=== PATIENT | female | born 1965 | race African-American/Black ===

== ENCOUNTER 2021-09-03 14:44 | Inpatient (IN) | payer BC, SELFPAY ==
[~2021-09-03 14:44] MED LIST: Iopamidol 370 76% 100 ML VIAL ONE
[2021-09-03 16:10] LABS: Bilirubin Neg (Negative); Blood, Urine Negative (Negative); Glucose, Urine (Dipstick) Normal (Negative); Ketone, Urine Negative (Negative); Leukocyte 100 (Negative); Nitrite Negative (Negative); Protein, Urine (Dipstick) Negative (Neg-Trace); Urobilinogen Normal mg/dL (Less than 2)
[2021-09-03 16:17] LABS: Clarity Hazy (Clear)
[2021-09-03 16:31] LABS: RBC/HPF None Seen HPF (0-3); WBC/HPF 0-3 HPF (0-3)
[2021-09-03 16:32] LABS: Bacteria/HPF 2+ HPF (None Seen)
[2021-09-03 16:43] LABS: #Eosinphils 0.1 10x3/uL (0.0-0.5); #Monocytes 0.5 10x3/uL (0.0-1.1); #Neutrophils 3.2 10x3/uL (1.5-8.4); %Basophils 0.5 % (0.0-2.0); %Eosinophils 0.9 % (0.0-6.0); %Lymphocytes 40.7 % (18.0-47.0); %Monocytes 7.4 % (0.0-10.0); %Neutrophils 50.2 % (40.0-75.0); Hemoglobin 13.7 g/dL (12.0-15.5); Mean Corpuscular HGB CONC 32.9 g/dL (32.0-36.0); Mean Corpuscular Hemoglobin 28.3 pg (27.0-33.0); Mean Corpuscular Volume 86.2 fl (81.6-98.3); Mean Platelet Volume 10.5 fl (7.4-10.4); Platelet Count 213 10x3/uL (150-450); RBC Distribution Width 14.8 % (11.5-14.5); Red Blood Cell (RBC) Count 4.84 10x6/uL (3.90-5.03); White Blood Cell (WBC) Count 6.4 10x3/uL (3.5-10.5)
[2021-09-03 16:58] LABS: ALT (SGPT) 15 U/L (8-55); AST (SGOT) 17 U/L (5-34); Albumin 3.9 g/dL (3.5-5.0); Alkaline Phosphatase 105 U/L (40-110); Anion Gap 12 mmol/L (10-20); BUN (Urea Nitrogen) 14 mg/dL (9.8-20.1); Bilirubin, Total 0.2 mg/dL (0.2-1.2); Calc. Creatinine Clearance 0 mL/min (70-130); Calcium 8.8 mg/dL (7.8-10.44); Carbon Dioxide 25 mmol/L (22-29); Chloride 105 mmol/L (98-107); Globulin 2.4 g/dL (2.4-3.5); Glucose 91 mg/dL (70-105); Potassium 4.2 mmol/L (3.5-5.1); Protein, Total 6.3 g/dL (6.0-8.3); Sodium 138 mmol/L (136-145)
[2021-09-03] MEDS ORDERED: Aspirin 300 MG Suppository ONE (18:12)
[2021-09-03] MEDS ORDERED: Morphine 2 MG/ML VIAL ONE (19:01)
[2021-09-03] MEDS ORDERED: hydrALAZINE 20 MG/ML VIAL SLOW IVP PRN (20:32)
[2021-09-03] MEDS ORDERED: Ondansetron PF 4 MG/2 ML Vial IVP PRN (20:35)
[2021-09-03] MEDS ORDERED: Zolpidem Tartrate 5 MG TAB PO PRN (20:35)
[2021-09-03] MEDS ORDERED: Bisacodyl 5 MG TAB PO PRN (20:35)
[2021-09-03] MEDS ORDERED: Morphine 2 MG/ML VIAL SLOW IVP PRN (20:40)
[2021-09-03] MEDS ORDERED: Clopidogrel Bisulfate 300 MG TAB PO SCH (21:00)
[2021-09-03] MEDS ORDERED: Famotidine 20 MG TAB PO SCH (21:00)
[2021-09-03 22:08] VITALS: BMI 32.6
[2021-09-03] MEDS: Sodium Chloride 0.9% 1,000 ML IV SCH (22:44)
[2021-09-03] MEDS: Atorvastatin Calcium 40 MG TAB PO SCH (22:45)
[2021-09-03] MEDS: cefTRIAXone\\ROCEPHIN 1 GM in Sodium Chloride 0.9% 100 ML IVPB SCH (22:47)
[2021-09-03] MEDS: Nicotine 14 MG PATCH TD SCH (22:56)
[2021-09-03 23:42] LABS: Amphetamine Not Detected (NotDetected); Barbiturates Screen Not Detected (NotDetected); Benzodiazepine Screen Not Detected (NotDetected); Cocaine Metabolite Screen Not Detected (NotDetected); Methadone Not Detected (NotDetected); Methamphetamine Not Detected (NotDetected); Opiate Screen Detected (NotDetected); Oxycodone Screen Not Detected (NotDetected); Phencyclidine (PCP) Not Detected (NotDetected); THC/Cannabinoid Screen Detected (NotDetected); Tricyclic Screen Not Detected (NotDetected)
[2021-09-04] MEDS: HYDROcodone/Acetaminophen 7.5/325 mg Tablet PO PRN ×5 (01:02→20:12)
[2021-09-04 04:59] LABS: #Eosinphils 0.1 10x3/uL (0.0-0.5); #Monocytes 0.5 10x3/uL (0.0-1.1); #Neutrophils 2.3 10x3/uL (1.5-8.4); %Basophils 0.5 % (0.0-2.0); %Eosinophils 1.8 % (0.0-6.0); %Lymphocytes 47.5 % (18.0-47.0); %Monocytes 9.1 % (0.0-10.0); %Neutrophils 40.7 % (40.0-75.0); Hemoglobin 13.4 g/dL (12.0-15.5); Mean Corpuscular HGB CONC 33.4 g/dL (32.0-36.0); Mean Corpuscular Hemoglobin 28.5 pg (27.0-33.0); Mean Corpuscular Volume 85.1 fl (81.6-98.3); Mean Platelet Volume 10.5 fl (7.4-10.4); Platelet Count 193 10x3/uL (150-450); Red Blood Cell (RBC) Count 4.71 10x6/uL (3.90-5.03); White Blood Cell (WBC) Count 5.7 10x3/uL (3.5-10.5)
[2021-09-04 05:10] LABS: ALT (SGPT) 19 U/L (8-55); AST (SGOT) 40 U/L (5-34); Albumin 3.3 g/dL (3.5-5.0); Alkaline Phosphatase 95 U/L (40-110); Anion Gap 15 mmol/L (10-20); BUN (Urea Nitrogen) 13 mg/dL (9.8-20.1); Bilirubin, Total 0.3 mg/dL (0.2-1.2); Calc. Creatinine Clearance 99 mL/min (70-130); Calcium 8.6 mg/dL (7.8-10.44); Carbon Dioxide 21 mmol/L (22-29); Cardiac Risk 2.2 (Less than 4.5); Chloride 107 mmol/L (98-107); Cholesterol 117 mg/dl (< 200 Desired); Globulin 2.5 g/dL (2.4-3.5); Glucose 83 mg/dL (70-105); HDL Cholesterol 54 mg/dL (>60 Neg Risk); LDL Cholesterol, Calculated 48 mg/dL; Protein, Total 5.8 g/dL (6.0-8.3); Sodium 139 mmol/L (136-145); Triglycerides 75 mg/dL (Less than 150)
[2021-09-04] MEDS ORDERED: Enoxaparin Sodium 30 MG/0.3 ML SYRINGE SC SCH (09:00)
[2021-09-04] MEDS: Clopidogrel Bisulfate 75 MG TAB PO SCH (09:45)
[2021-09-04] MEDS: Sodium Chloride 0.9% 1,000 ML IV SCH (10:29)
[2021-09-04 12:35] LABS: Syphilis Antibody INDETERMINATE (Nonreactive)
[2021-09-04] MEDS: Atorvastatin Calcium 40 MG TAB PO SCH (20:12)
[2021-09-04] MEDS ORDERED: Famotidine 20 MG TAB PO SCH (21:00)
[2021-09-04] MEDS: cefTRIAXone\\ROCEPHIN 1 GM in Sodium Chloride 0.9% 100 ML IVPB SCH (21:57)
[2021-09-04] MEDS: Nicotine 14 MG PATCH TD SCH (22:01)
[2021-09-05] MEDS: Sodium Chloride 0.9% 1,000 ML IV SCH ×2 (05:00→18:33)
[2021-09-05] MEDS: Famotidine 20 MG TAB PO SCH ×2 (08:30→20:14)
[2021-09-05] MEDS: Clopidogrel Bisulfate 75 MG TAB PO SCH (08:35)
[2021-09-05] MEDS ORDERED: Enoxaparin Sodium 40 MG/0.4 ML SYRINGE SC SCH (09:00)
[2021-09-05] MEDS ORDERED: Lidocaine 1% PF 5 ML VIAL ONE (11:12)
[2021-09-05] MEDS ORDERED: Sodium Bicarbonate 2.5 MEQ/5 ML VIAL ONE (11:13)
[2021-09-05 11:16] LABS: HIV (1/2) Antibody/Antigen Non-Reactive (NonReactive); HIV 1/2 INDEX 0.05 S/CO (<1.00)
[2021-09-05 12:58] LABS: CSF Source CSF; Clarity Clear (Clear); Tube # 2
[2021-09-05 13:13] LABS: CSF, Glucose 49 mg/dl (40-70); CSF, Protein 73 mg/dL (15-40)
[2021-09-05 13:14] LABS: CSF RBC Count - Manual 0 /cu.mm (None Seen); CSF WBC/NonHematics Count-Man 0 /cu.mm (0-5)
[2021-09-05 13:30] LABS: ANA Symphony (Qualitative) Negative (Negative); ANA Symphony (Quantitative) 0.2 Ratio (< 0.7 Negative); dsDNA IgG Antibody Less than 0.5 IU/mL (<10 Negative)
[2021-09-05 13:47] LABS: Rheumatoid Factor IgA Antibody 6.6 IU/mL (<14 Negative); Rheumatoid Factor IgM Antibody 0.5 IU/mL (<3.5 Negative)
[2021-09-05] MEDS: Atorvastatin Calcium 40 MG TAB PO SCH (20:14)
[2021-09-05] MEDS: HYDROcodone/Acetaminophen 7.5/325 mg Tablet PO PRN (20:14)
[2021-09-05] MEDS: Nicotine 14 MG PATCH TD SCH (20:18)
[2021-09-06] MEDS: HYDROcodone/Acetaminophen 7.5/325 mg Tablet PO PRN ×3 (00:46→22:05)
[2021-09-06] MEDS: Sodium Chloride 0.9% 1,000 ML IV SCH (06:32)
[2021-09-06] MEDS ORDERED: Bicillin LA 2.4 MILL.UNITS/4 ML SYRINGE IM SCH (08:00)
[2021-09-06] MEDS: Clopidogrel Bisulfate 75 MG TAB PO SCH (09:58)
[2021-09-06] MEDS: Famotidine 20 MG TAB PO SCH ×2 (09:58→22:05)
[2021-09-06] MEDS: Atorvastatin Calcium 40 MG TAB PO SCH (22:05)
[2021-09-06] MEDS: Nicotine 14 MG PATCH TD SCH (22:05)
[2021-09-07] MEDS: Clopidogrel Bisulfate 75 MG TAB PO SCH (08:12)
[2021-09-07] MEDS: Famotidine 20 MG TAB PO SCH (08:12)
[2021-09-07 11:49] VITALS: TEMP 98.5
[2021-09-07 13:15] VITALS: BP 107/77
== END 2021-09-07 14:00 | disposition home or self-care (01) | DRG 67 ==
LOC: CSHERS 14:44 → CSHTELE 20:20 → OBSVTOIN 20:20
PROVIDERS: ADMIT Hospitalist; ATTEND Hospitalist
PROC: 009U3ZX Drainage of Spinal Canal, Percutaneous Approach, Diagnostic (ICD-10-PCS; principal; 2021-09-05)
PROC: B01B1ZZ Fluoroscopy of Spinal Cord using Low Osmolar Contrast (ICD-10-PCS; 2021-09-05)
DX: I66.21 Occlusion and stenosis of right posterior cerebral artery (principal); G93.41 Metabolic encephalopathy; N39.0 Urinary tract infection, site not specified; G81.91 Hemiplegia, unspecified affecting right dominant side; I73.9 Peripheral vascular disease, unspecified; I10 Essential (primary) hypertension; F41.9 Anxiety disorder, unspecified; G43.909 Migraine, unspecified, not intractable, without status migrainosus; A53.9 Syphilis, unspecified; G89.29 Other chronic pain; F17.210 Nicotine dependence, cigarettes, uncomplicated; Z20.822 Contact with and (suspected) exposure to COVID-19; Z90.49 Acquired absence of other specified parts of digestive tract; Z90.710 Acquired absence of both cervix and uterus; Z88.8 Allergy status to other drugs, medicaments and biological substances; Z71.6 Tobacco abuse counseling; Z79.899 Other long term (current) drug therapy; Z88.6 Allergy status to analgesic agent; Z91.013 Allergy to seafood; Z98.890 Other specified postprocedural states; Z79.01 Long term (current) use of anticoagulants; Z82.3 Family history of stroke; Z91.018 Allergy to other foods
CPT/HCPCS: 36415; 36416; 51701; 62270; 70450; 70496; 70498; 70551; 71045; 72125; 80053; 80061; 80306; 81003; 81015; 82945; 83090; 83520; 84157; 84484; 85025; 85652; 86038; 86200; 86225; 86592; 86593; 86780; 87086; 87389; 87899; 89051; 93005; 93306; 95819; 95957; 96374; G0378; J0561; J0696; J1650; J2270; J3490; J7050; Q9967; U0003; U0005

== ENCOUNTER 2022-02-27 10:58 | Emergency (ER) | payer BC, OTHER ==
[2022-02-27 11:40] LABS: #Eosinphils 0.1 10x3/uL (0.0-0.5); #Monocytes 0.5 10x3/uL (0.0-1.1); #Neutrophils 4.4 10x3/uL (1.5-8.4); %Basophils 0.4 % (0.0-2.0); %Eosinophils 0.9 % (0.0-6.0); %Lymphocytes 36.2 % (18.0-47.0); %Monocytes 6.6 % (0.0-10.0); %Neutrophils 55.6 % (40.0-75.0); Hemoglobin 13.5 g/dL (12.0-15.5); Mean Corpuscular HGB CONC 34.2 g/dL (32.0-36.0); Mean Corpuscular Volume 84.9 fl (81.6-98.3); Mean Platelet Volume 10.6 fl (7.4-10.4); Platelet Count 244 10x3/uL (150-450); RBC Distribution Width 15.5 % (11.5-14.5); Red Blood Cell (RBC) Count 4.65 10x6/uL (3.90-5.03); White Blood Cell (WBC) Count 7.8 10x3/uL (3.5-10.5)
[2022-02-27 12:05] LABS: ALT (SGPT) 68 U/L (8-55); AST (SGOT) 56 U/L (5-34); Albumin 3.8 g/dL (3.5-5.0); Alkaline Phosphatase 169 U/L (40-110); Anion Gap 13 mmol/L (10-20); BUN (Urea Nitrogen) 13 mg/dL (9.8-20.1); Bilirubin, Total 0.3 mg/dL (0.2-1.2); Calc. Creatinine Clearance 0 mL/min (70-130); Calcium 8.7 mg/dL (7.8-10.44); Carbon Dioxide 22 mmol/L (22-29); Chloride 108 mmol/L (98-107); Estimated GFR 66; Globulin 2.7 g/dL (2.4-3.5); Glucose 92 mg/dL (70-105); Potassium 4.4 mmol/L (3.5-5.1); Protein, Total 6.5 g/dL (6.0-8.3); Sodium 139 mmol/L (136-145)
[2022-02-27] MEDS ORDERED: Ondansetron PF 4 MG/2 ML Vial ONE (14:01)
[2022-02-27] MEDS ORDERED: Morphine 4 MG/ML VIAL ONE (14:01)
== END 2022-02-27 16:29 | disposition home or self-care (01) ==
LOC: CSHERS 10:58
DX: K57.32 Diverticulitis of large intestine without perforation or abscess without bleeding (principal); F17.210 Nicotine dependence, cigarettes, uncomplicated
CPT/HCPCS: 36415; 71046; 71275; 74177; 80053; 83880; 84484; 85025; 85379; 93005; 96374; 96375; J2270; J2405; Q9967

== ENCOUNTER 2022-09-06 10:42 | Outpatient (CLI) | payer BC | END 2022-09-06 10:43 | disposition home or self-care (01) | LOC: CSHULT 10:42 | PROVIDERS: ATTEND Nurse Practitioner Family | DX: R10.31 Right lower quadrant pain (principal) | CPT/HCPCS: 76700 ==

== ENCOUNTER 2024-03-23 10:54 | Outpatient (CLI) | payer OTHER | END 2024-03-23 10:55 | disposition home or self-care (01) | LOC: CSHMRI 10:54 | PROVIDERS: ATTEND Student in an Organized Health Care Education/Training Program | DX: M51.16 Intervertebral disc disorders with radiculopathy, lumbar region (principal); M48.061 Spinal stenosis, lumbar region without neurogenic claudication; M48.07 Spinal stenosis, lumbosacral region; M51.17 Intervertebral disc disorders with radiculopathy, lumbosacral region | CPT/HCPCS: 72148 ==